=== PATIENT | female | born 1995 | race Caucasian/White ===

== ENCOUNTER 2021-07-02 22:00 | Outpatient (CLI) | payer MEDICAID, SELFPAY ==
[2021-07-02] VITALS (8 sets, daily range): BP systolic 134–159; BP diastolic 83–93; PULSE 88–106; RESP 16; TEMP 36.8; BMI 27.2
[2021-07-02 23:21] LABS: Urine Creatinine 55 mg/dL (28-217); Urine Protein Random 8 mg/dL
[2021-07-02 23:22] LABS: UPRO/UCREAT Ratio 0.15 mg/mg CR
== END 2021-07-02 23:44 | disposition home or self-care (01) ==
LOC: OPOB 22:08 → OBGYN 22:09
PROVIDERS: PCP Family Medicine; Visit Provider Family Medicine
DX: O26.899 Other specified pregnancy related conditions, unspecified trimester (principal); Z3A.00 Weeks of gestation of pregnancy not specified; R10.9 Unspecified abdominal pain
CPT/HCPCS: 36415; 59025; 82570; 84156; 99211

== ENCOUNTER 2021-07-04 13:24 | Inpatient (IN) | payer MEDICAID, SELFPAY ==
[2021-07-04] VITALS (37 sets, daily range): BP systolic 125–152; BP diastolic 60–91; PULSE 70–113; RESP 16–18; TEMP 36.9–37; O2SAT 97–98; BMI 27.2
[2021-07-04 14:41] LABS: Urine Color Yellow (Yellow)
[2021-07-04 14:42] LABS: Add Urine Microscopic? YES; Bilirubin Urine Neg (Negative); Blood Urine Neg (Negative); Glucose Urine UA Norm (Normal); Ketones Urine 2+ (Negative); Leukocyte Esterase Urine Negative (Negative); Nitrate Urine Negative (Negative); Protein Urine Neg (Negative); Urine Appearance SL Hazy (CLEAR); Urobilinogen Urine 4 mg/dL (Negative); pH Urine 7 (5-7)
[2021-07-04 14:44] LABS: Add Urine Culture? No; Alanine Aminotransferase 8 U/L (0-33); Albumin Level 3.4 g/dL (3.5-5.2); Alkaline Phosphatase 255 IU/L (35-105); Anion Gap 18.6 (5-19); Aspartate Amino Transferase 15 U/L (0-32); Bacteria Urine 1+ /hpf; Blood Urea Nitrogen 4 mg/dL (6-20); Calcium 8.5 mg/dL (8.5-10.5); Carbon Dioxide 20 mmol/L (22-29); Chloride 102 mmol/L (98-107); Globulin 2.6 g/dL (1.3-4.6); Glomerular Filtration Rate 432.8 mL/min (90-130); Glucose 76 mg/dL (65-115); Osmolality Calculated 280 mOsm/kg (285-295); Potassium 3.6 mmol/L (3.5-5.1); Sodium 137 mmol/L (136-145); Squamous Epithelial Cell Urine 15-25 /hpf (0-5); Total Bilirubin 0.3 mg/dL (0.15-1.2); WBC Urine 0-4 /hpf (0-5)
[2021-07-04] MEDS: ampicillin 2,000 MG in sodium chloride 0.9% (plus) 50 ML 100 MG IV (14:56)
[2021-07-04] MEDS: dextrose 5%-lactated ringers 1,000 ML 125 ML IV (14:57)
[2021-07-04] MEDS: miSOPROStol 100 mcg tablet 25 MCG VAGINAL (14:57)
--- NOTE | 2021-07-04 15:13 | ANES.PREANE2 ---
Pre-Anesthetic Assessment Pre-Anesthetic Assessment: Height/Weight: Height 1.68 m Weight 76.657 kg Pulse BP 84 135/73 07/04/21 15:08 07/04/21 15:08 Preop Diagnosis: IUP Proposed Procedure: labor epidural Was Beta Tawnya taken within 24 hours: N/A Was Clonidine taken within 24 hours: N/A Social: Social History: No alcohol and No tobacco Exam: Pre-Anes Outpt Exam: alert and oriented x 3 Airway: Submandibular: WNL Cervical ROM: WNL MP: 2 Dentition: Full History/ROS: No significant history except as noted Pulmonary: Pulmonary: None reported CV/HEM: CV/HEM: HTN (gestational) and Murmur (stable, doesnt see belt loop maker) : : None reported Hepatic: Hepatic: Hepatitis (C) GI: GI: GERD Metabolic: Metabolic: None reported Musc/skel: Musc/skel: None reported Neuropsych: Neuropsych: None reported Anesthetic Plan: ASA status: 2 Anesthesia: Anesthesia Evaluation and Regional (specify below) (epidural) Risk of > 500 ml blood loss (7ml/kg in children): No Meds/Allergies Current Medications: Current Medications Generic Name Dose Route Start Last Admin Trade Name Freq PRN Reason Stop Dose Admin Dextrose/Lactated Ringer's 1,000 mls @ 125 m ls/hr 07/04/21 14:00 07/04/21 14:57 Dextrose 5%-Lact ated Ringers IV 125 mls/hr .Q8H DELMAR Administration Misoprostol 25 mcg 07/04/21 14:30 07/04/21 14:57 Misoprostol 100 Mcg Tablet VAGINAL 07/04/21 22:31 25 mcg Q4H DELMAR Administration PFS Anesthesia Female Reproductive History: : 3 Data Anesthesia CBC & Chem 7: 07/04/21 12:30 Other Labs: Laboratory Results - last 48 hr 07/04/21 07/04/21 12:30 12:30 Sodium 137 Potassium 3.6 Chloride 102 Carbon Dioxide 20 L Anion Gap 18.6 BUN 4 L Creatinine 0.2 L GFR Calculation 432.8 H Glucose 76 Calculated Osmolality 280 L Uric Acid 3.0 Calcium 8.5 Total Bilirubin 0.3 AST 15 ALT 8 Alkaline Phosphatase 255 H Total Protein 6.0 L Albumin 3.4 L Globulin 2.6 Urine Color Yellow Urine Appearance Sl hazy Urine pH 7 Ur Specific [place] 1.010 Urine Protein Neg Urine Glucose (UA) Norm Urine Ketones 2+ H Urine Blood Neg Urine Nitrate Negative Urine Bilirubin Neg Urine Urobilinogen 4 H Ur Leukocyte Esterase Negative Urine RBC None Urine WBC 0-4 H Ur Squamous Epith Cells 15-25 H Amorphous Sediment Not Reportable Urine Bacteria 1+ H Cardiac Studies: No Data to Display
[2021-07-04 15:43] LABS: Basophils % 0.2 %; Eosinophils % 0.2 %; Hematocrit 39.1 % (37.0-47.0); Hemoglobin 13.1 g/dL (11.5-15.3); Lymphocytes % 14.1 %; Mean Corpuscular HGB Conc 33.5 g/dL (30.0-36.0); Mean Corpuscular Hemoglobin 29.9 pg (28.0-34.0); Mean Corpuscular Volume 89.3 fl (81-99); Mean Platelet Volume 11.6 fL (7.4-10.4); Monocytes % 6.9 %; Neutrophils # 11.21 10^3/uL (1.8-7.7); Neutrophils % 77.6 %; Nucleated Red Blood Cells % 0 %; Platelet Count 282 10^3/cmm (130-400); Red Blood Count 4.38 10^6/uL (4.1-5.3); Red Cell Distribution Width 11.8 % (12.1-15.1); White Blood Count 14.4 10^3/uL (4.0-10.0)
[2021-07-04 16:21] LABS: Urine Creatinine 157 mg/dL (28-217)
[2021-07-04 16:28] LABS: UPRO/UCREAT Ratio 0.19 mg/mg CR; Urine Protein Random 30 mg/dL
[2021-07-04 16:36] LABS: Adenovirus Not Detected (NOT DETECT); Chlamydia Pneumoniae Not Detected (NOT DETECT); Coronavirus 229E,HKU1,NL63,OC4 Not Detected (NOT DETECT); Human Metapneumovirus Not Detected (NOT DETECT); Human Rhinovirus/Enterovirus Not Detected (NOT DETECT); Influenza A Not Detected (NOT DETECT); Influenza A H1 Not Detected (NOT DETECT); Influenza A H1-2009 Not Detected (NOT DETECT); Influenza A H3 Not Detected (NOT DETECT); Influenza B Not Detected (NOT DETECT); Mycoplasma Pneumoniae Not Detected (NOT DETECT); Parainfluenza Virus Type 1 Not Detected (NOT DETECT); Parainfluenza Virus Type 2 Not Detected (NOT DETECT); Parainfluenza Virus Type 3 Not Detected (NOT DETECT); Parainfluenza Virus Type 4 Not Detected (NOT DETECT); Respiratory Syncytial Virus A Not Detected (NOT DETECT); Respiratory Syncytial Virus B Not Detected (NOT DETECT); SARS-COV-2 Not Detected (NOT DETECT)
[2021-07-04] MEDS: ampicillin 1,000 MG in sodium chloride 0.9% (plus) 50 ML 100 MG IV (19:13)
[2021-07-04] MEDS: fentaNYL 50 mcg/mL INJ 2mL IVP (19:20)
[2021-07-04] MEDS: lactated ringers 1,000 ML 999 ML IV (19:30)
[2021-07-04] MEDS: oxytocin 30 UNIT/500 ML BAG 600 UNIT IV (19:56)
--- NOTE | 2021-07-04 20:20 | P.HPUD_ITS ---
Labor & Delivery H&P Update Date of Procedure: July 04, 2021 Date H&P Performed: 07/03/21 H&P update information: I have reviewed H&P completed within last 30 days, I have examined patient prior to procedure and Changes to prior documentation as noted here Admission Diagnosis: 3 para 2-0-0-2 at 37-week and 4 days estimated gestational age presenting with consistent, painful uterine contractions Preop diagnosis: IUP Planned procedure: Spontaneous vaginal delivery Other information: The patient is a pleasant 25-year-old who presented to the hospital today complaining of consistent painful contractions and an elevated blood pressure. The patient was assessed and found to have painful contractions every 5 to 7 minutes as well as a cervical exam that was 2 and 60%. The patient has been having high blood pressures intermittently over the last week. She was noted to have high blood pressures at home with systolics into the 150s prior to coming to the hospital. She also had blood pressures that were documented elevated last week both in my office and in the OB department. The patient lives about 45 minutes away from the hospital and has a history of rapid labors. Given the patient's gestational hypertension, her GBS status and tendency towards rapid labors, and her active painful contractions, I elected to proceed with augmentation of her labor. She was placed on Cytotec 25 mcg. An amniotomy was performed. A preeclamptic panel was performed which demonstrated a protein creatinine ratio of 0.19. Otherwise it was relatively unremarkable with exception of a white blood count of 14.4. Her labs were also relatively unremarkable. She had initial hepatitis C test which was found to be positive. A confirmatory test found that to be a false positive. Her blood type is O positive. She was GBS positive. She is rubella immune. The remainder of her panel labs are within normal limits. The patient also desired a tubal ligation. We discussed the risks of the procedure including the risks of bleeding, infection, and damage to intra- abdominal organs earlier in her . We also discussed the 1 and 200 chance of becoming again despite a successful tubal ligation. She acknowledges all these risks, and want to getting on some here in the hospital, and would like to proceed with a tubal ligation when she has had her baby. The consent form was signed over a month ago. Related Problem List Diagnoses (1) 37 weeks gestation of : (2) Gestational hypertension: (3) H/O rapid labor: (4) Uterine contractions: (5) Group beta Strep positive: (6) Sterilization consult:
--- NOTE | 2021-07-04 20:34 | PM.DELIVERY ---
Delivery Note: Date of delivery: July 04, 2021 Pre-delivery diagnoses: 1. 25-year-old 3 para 2-0-0-2 at 37 weeks and 4 days estimated gestational age 2. History of rapid labors 3. Gestational hypertension 4. Consistent painful contractions 5. GBS positive Post-delivery diagnoses: Status post spontaneous vaginal delivery Op report anesthesia: None Estimated blood loss (mL): 50 Pre-Delivery Course: Please see history and physical update for details. The patient arrived to the hospital with consistent contractions. Her labor was augmented with Cytotec and an amniotomy. She then quickly progressed to complete without difficulty. The patient had over 4 hours of group B strep protocol. Delivery: DELIVERY: The patient progressed to complete without difficulty. While I was coming from home, Dr. Whittington stepped in for me. The baby delivered seconds before I arrived. She delivered a Female With a weight of 6 pounds 12 ounces with Apgars of 9, 9. The baby was delivered from the MADHURI position and placed on the mother's abdomen. The cord was clamped and cut about 90 seconds after delivery. There was no nuchal cord. There was no meconium. The placenta and 3 vessel cord were delivered intact shortly thereafter. The perineum and vaginal vault were carefully examined. No lacerations were noted. Both the mother and the baby were in stable condition. Post-Delivery Status: Good A&P Assessment and plan (1) 37 weeks gestation of : Status: Acute (2) Gestational hypertension: Status: Acute (3) H/O rapid labor: Status: Acute (4) Uterine contractions: Status: Acute (5) Group beta Strep positive: Status: Acute Coding Level of Care Code Acute Supervisor Electronic Testing for Chg Fwd Diagnoses 37 weeks gestation of Z3A.37 Gestational hypertension O13.9 H/O rapid labor Z87.59 Uterine contractions O47.9 Group beta Strep positive B95.1
[2021-07-04] MEDS: ibuprofen 800 mg tablet PO (21:47)
[2021-07-04] MEDS: benzocaine-menthol 78 gm Canister 1 SPRAY TOPICAL (21:47)
[2021-07-04] MEDS: lanolin oint 7 gm 1 APPLIC TOPICAL (21:48)
[2021-07-04] MEDS: HYDROcodone-acetaminophen 5-325 mg Tablet PO (23:14)
[2021-07-05] VITALS (25 sets, daily range): BP systolic 96–146; BP diastolic 43–82; PULSE 54–101; RESP 14–21; TEMP 36.1–37.1; O2SAT 95–100
[2021-07-05] MEDS: HYDROcodone-acetaminophen 5-325 mg Tablet PO ×2 (05:59→14:34)
[2021-07-05] MEDS: docusate sodium 100 mg Capsule PO ×2 (07:59→18:15)
[2021-07-05] MEDS: prenatal vitamin Capsule 1 CAP PO (07:59)
[2021-07-05] MEDS: ibuprofen 800 mg tablet PO ×2 (07:59→14:35)
--- NOTE | 2021-07-05 10:01 | P.ANESASSM_ITS ---
Pre-Anesthetic Assessment Pre-Anesthetic Assessment: Height/Weight: Height 1.68 m Weight 76.657 kg Temp Pulse Resp BP Pulse Ox 97.2 F L 64 15 146/81 96 07/05/21 09:29 07/05/21 09:29 07/05/21 09:29 07/05/21 09:29 07/05/21 09:29 Preop Diagnosis: female desiring sterilization Proposed Procedure: Operation Date: 07/05/21 09:30 Proposed Procedures p Bilateral Tubal Ligation(Not Applicable) - Jone aJne MD Was Beta Tawnya taken within 24 hours: N/A Was Clonidine taken within 24 hours: N/A Last intake: Intake Last Liquid Date 07/05/21 Last Liquid Time 00:00 Last Solid Date 07/05/21 Last Solid Time 00:00 Social: Social History: Tobacco and No alcohol Exam: Pre-Anes Outpt Exam: alert, oriented x 3, clear to auscultation bilaterally and regular rate & rhythm Airway: Submandibular: WNL Cervical ROM: WNL MP: 3 Dentition: Full History/ROS: No significant history except as noted Pulmonary: Pulmonary: None reported CV/HEM: CV/HEM: HTN (Gestational htn) : : None reported Hepatic: Hepatic: None reported GI: GI: None reported Metabolic: Metabolic: None reported Musc/skel: Musc/skel: None reported Neuropsych: Neuropsych: None reported Anesthetic Plan: ASA status: 2 Anesthesia: Anesthesia Evaluation and Regional (specify below) Other: We discussed risk and benefits of spinal vs general anesthetic including catastrophic nerve injury, PDPH, infection, hypotension associated with spinal. Patient elects to proceed with spinal today. Risk of > 500 ml blood loss (7ml/kg in children): No Meds/Allergies Current Medications: Current Medications Generic Name Dose Route Start Last Admin Trade Name Freq PRN Reason Stop Dose Admin Hydrocodone Bitart /Acetaminophen 1 - 2 tab 07/04/21 21:42 07/05/21 05:59 Hydrocodone-Acet aminophen 5-325 Mg Tablet PO 2 tab Q6H PRN Administration MODERATE TO SEVER E PAIN Benzocaine 1 spray 07/04/21 21:42 07/04/21 21:47 Benzocaine-Menth ol 78 Gm Canister TOPICAL 1 spray PRN PRN Administration PAIN Docusate Sodium 100 mg 07/05/21 09:00 07/05/21 07:59 Docusate Sodium 100 Mg Capsule PO 100 mg BID DELMAR Administration Ibuprofen 800 mg 07/04/21 21:42 07/05/21 07:59 Ibuprofen 800 Mg Tablet PO 800 mg TID DELMAR Administration Lanolin 1 applic 07/04/21 21:42 07/04/21 21:48 Lanolin Oint 7 G m TOPICAL 1 applic PRN PRN Administration DRYNESS Multivit/ Folic Acid/Iron 1 cap 07/05/21 09:00 07/05/21 07:59 Vitamin Capsule PO 1 cap DAILY DELMAR Administration PFSH Anesthesia Female Reproductive History: : 3 Data Anesthesia CBC & Chem 7: 07/04/21 12:30 07/04/21 12:30 Other Labs: Laboratory Results - last 48 hr 07/04/21 07/04/21 07/04/21 12:30 12:30 12:30 WBC RBC Hgb Hct MCV MCH MCHC RDW Plt Count MPV Neut % (Auto) Lymph % (Auto) [place] % (Auto) Eos % (Auto) Baso % (Auto) Neut # (Auto) Lymph # (Auto) [place] # (Auto) Eos # (Auto) Baso # (Auto) Nucleated RBC % (auto) Nucleated RBCs # Sodium 137 Potassium 3.6 Chloride 102 Carbon Dioxide 20 L Anion Gap 18.6 BUN 4 L Creatinine 0.2 L GFR Calculation 432.8 H Glucose 76 Calculated Osmolality 280 L Uric Acid 3.0 Calcium 8.5 Total Bilirubin 0.3 AST 15 ALT 8 Alkaline Phosphatase 255 H Total Protein 6.0 L Albumin 3.4 L Globulin 2.6 Urine Color Yellow Urine Appearance Sl hazy Urine pH 7 Ur Specific [place] 1.010 Urine Protein Neg Urine Glucose (UA) Norm Urine Ketones 2+ H Urine Blood Neg Urine Nitrate Negative Urine Bilirubin Neg Urine Urobilinogen 4 H Ur Leukocyte Esterase Negative Urine RBC None Urine WBC 0-4 H Ur Squamous Epith Cells 15-25 H Amorphous Sediment Not Reportable Urine Bacteria 1+ H U Random Total Protein Urine Creatinine Protein/Creatinin Ratio Coronavirus 229E (PCR) Not detected SARS-CoV-2 (PCR) Not detected 07/04/21 07/04/21 12:30 12:30 WBC 14.4 H RBC 4.38 Hgb 13.1 Hct 39.1 MCV 89.3 MCH 29.9 MCHC 33.5 RDW 11.8 L Plt Count 282 MPV 11.6 H Neut % (Auto) 77.6 Lymph % (Auto) 14.1 [place] % (Auto) 6.9 Eos % (Auto) 0.2 Baso % (Auto) 0.2 Neut # (Auto) 11.21 H Lymph # (Auto) 2.0 [place] # (Auto) 1.0 H Eos # (Auto) 0.0 Baso # (Auto) 0.0 Nucleated RBC % (auto) 0 Nucleated RBCs # 0.0 Sodium Potassium Chloride Carbon Dioxide Anion Gap BUN Creatinine GFR Calculation Glucose Calculated Osmolality Uric Acid Calcium Total Bilirubin AST ALT Alkaline Phosphatase Total Protein Albumin Globulin Urine Color Urine Appearance Urine pH Ur Specific [place] Urine Protein Urine Glucose (UA) Urine Ketones Urine Blood Urine Nitrate Urine Bilirubin Urine Urobilinogen Ur Leukocyte Esterase Urine RBC Urine WBC Ur Squamous Epith Cells Amorphous Sediment Urine Bacteria U Random Total Protein 30 Urine Creatinine 157 Protein/Creatinin Ratio 0.19 Coronavirus 229E (PCR) SARS-CoV-2 (PCR) Cardiac Studies: No Data to Display
--- NOTE | 2021-07-05 11:07 | P.OP_ITS ---
Operative Report Date of procedure: July 05, 2021 Pre-op Diagnosis: female desiring sterilization Post-op diagnosis: same Procedure Done: minilaparotomy bilateral tubal ligation using a modified Charlie technique Specimens removed/disposition: Bilateral fallopian tube segments with the right segment being tagged. Pathology: other (Bilateral fallopian tube segments with the right segment being tagged) Surgeon: Jone Jane Anesthesia: General Estimated blood loss (mL): 5 Complications: None Condition: stable Brief History: The patient is a 25 female desiring sterilization. Procedure: The patient was brought back to the operating room where anesthesia was found to be adequate. 10 mL of 0.5% bupivacaine was then used to pre- anesthetize the area just inferior to the umbilicus. A #15 blade was then used to make a 3 cm transverse incision just inferior to the umbilicus. I then dissected down to the underlying subcutaneous tissue until arriving at the fascia. The fascia was then nicked with the scalpel. The fascial incision was extended manually. I identified the fundus of the uterus and followed it to the left fallopian tube. The fallopian tube was then followed to the fimbria. The tube was then ligated, cut, and cauterized in a modified Charlie fashion using 0 chromic. The right fallopian tube was then identified and followed through to the fimbria. It was ligated, cut, and cauterized in similar fashion. The right fallopian tube was tagged. Both fallopian tubes had excellent hemostasis. The fascia was reapproximated using 0 Vicryl in running stitch. The subcutaneous tissue was carefully examined and no further bleeding was noted. The skin was then reapproximated using 4-0 Vicryl in a running subcuticular stitch. A sterile dressing was placed. All counts were correct x2. The patient was moved to the recovery room in stable condition. Associated Problem List Diagnoses (1) Sterilization consult:
--- NOTE | 2021-07-05 11:20 | P.DS_ITS ---
Discharge Providers POWER PLANT SUPERINTENDENT Date of Admission: 07/04/21 13:24 Date of Discharge: 07/07/21 Attending Provider at Admission: Jone Jane MD Attending Provider at Discharge: Jone Jane MD Primary Care Provider: Jone Jane MD Diagnoses at Discharge Discharge Diagnosis (1) Sterilization consult: Status: Resolved Reason for Visit Reason for Visit: contractions Hospital Course Hospital Course The patient presented to the hospital having consistent contractions. She also had known gestational hypertension. A preeclamptic panel was done which was negative. Her labor was augmented. She progressed to complete and had an unremarkable precipitous delivery of a healthy appearing female infant. Her course was unremarkable. A tubal ligation was performed. She recovered well postoperatively. She was discharged home. Information Peripartum Data: Delivery Method: Vaginal Physical Exam Narrative: EXAM NARRATIVE: The patient is alert. She appears comfortable. Her heart has a regular rate and rhythm with no murmurs appreciated. Lungs are clear to auscultation bilaterally. Her fundus is firm and below the umbilicus. The bandage over her incision is clean dry and intact Discharge Data Data Completed and Pending: Pending at discharge Category Date Time Status Hemagram Timed Lab 07/05/21 08:10 Uncollected Pathology: Surgic al [PTH] Routine Pth 07/05/21 11:08 Ordered Labs from last 24 hours 07/04/21 07/04/21 07/04/21 12:30 12:30 12:30 WBC 14.4 H RBC 4.38 Hgb 13.1 Hct 39.1 MCV 89.3 MCH 29.9 MCHC 33.5 RDW 11.8 L Plt Count 282 MPV 11.6 H Neut % (Auto) 77.6 Lymph % (Auto) 14.1 [place] % (Auto) 6.9 Eos % (Auto) 0.2 Baso % (Auto) 0.2 Neut # (Auto) 11.21 H Lymph # (Auto) 2.0 [place] # (Auto) 1.0 H Eos # (Auto) 0.0 Baso # (Auto) 0.0 Nucleated RBC % (a uto) 0 Nucleated RBCs # 0.0 Sodium Potassium Chloride Carbon Dioxide Anion Gap BUN Creatinine GFR Calculation Glucose Calculated Osmolal ity Uric Acid Calcium Total Bilirubin AST ALT Alkaline Phosphata se Total Protein Albumin Globulin Urine Color Urine Appearance Urine pH Ur Specific [place] Urine Protein Urine Glucose (UA) Urine Ketones Urine Blood Urine Nitrate Urine Bilirubin Urine Urobilinogen Ur Leukocyte [place] ase Urine RBC Urine WBC Ur Squamous Epith Cells Amorphous Sediment Urine Bacteria U Random Total Pro tein 30 Urine Creatinine 157 Protein/Creatinin Ratio 0.19 Coronavirus 229E ( PCR) Not detected SARS-CoV-2 (PCR) Not detected 07/04/21 07/04/21 12:30 12:30 WBC RBC Hgb Hct MCV MCH MCHC RDW Plt Count MPV Neut % (Auto) Lymph % (Auto) [place] % (Auto) Eos % (Auto) Baso % (Auto) Neut # (Auto) Lymph # (Auto) [place] # (Auto) Eos # (Auto) Baso # (Auto) Nucleated RBC % (a uto) Nucleated RBCs # Sodium 137 Potassium 3.6 Chloride 102 Carbon Dioxide 20 L Anion Gap 18.6 BUN 4 L Creatinine 0.2 L GFR Calculation 432.8 H Glucose 76 Calculated Osmolal ity 280 L Uric Acid 3.0 Calcium 8.5 Total Bilirubin 0.3 AST 15 ALT 8 Alkaline Phosphata se 255 H Total Protein 6.0 L Albumin 3.4 L Globulin 2.6 Urine Color Yellow Urine Appearance Sl hazy Urine pH 7 Ur Specific [place] 1.010 Urine Protein Neg Urine Glucose (UA) Norm Urine Ketones 2+ H Urine Blood Neg Urine Nitrate Negative Urine Bilirubin Neg Urine Urobilinogen 4 H Ur Leukocyte [place] ase Negative Urine RBC None Urine WBC 0-4 H Ur Squamous Epith Cells 15-25 H Amorphous Sediment Not Reportable Urine Bacteria 1+ H U Random Total Pro tein Urine Creatinine Protein/Creatinin Ratio Coronavirus 229E ( PCR) SARS-CoV-2 (PCR) Vitals: Last Vital Signs Temp 97.2 F L 07/05/21 09:29 Pulse 64 07/05/21 09:29 Resp 15 07/05/21 09:29 BP 146/81 07/05/21 09:29 Pulse Ox 96 07/05/21 09:29 Discharge Plan Discharge Patient Disposition: Home Condition: Stable Prescriptions: New ibuprofen 800 mg Tablet 800 mg PO TID Qty: 45 RF: 0 hydrocodone-acetaminophen 5-325 mg Tablet 1 - 2 tab PO Q6H PRN (Reason: Moderate To Severe Pain) Qty: 10 RF: 0 Continued prenat.vits,billie,[id number] Tablet 1 tab PO DAILY RF: 0 Discharge Orders: Discharge Order (Routine); Ordered 07/05/21 Ordered By: Jone Jane Referrals: Jone Jane MD [Primary Care Provider] - 4-7 days (Someone from the OB department will call you tomrrow with your post- and appointments. ) Discharge Diet: Usual diet Discharge Activity: Limit activity as instructed Patient Instructions: Depression (DC), Expression, Collection and Storage of Breast Milk (DC), Bleeding (DC), Preeclampsia and Eclampsia After Delivery (GEN), OB Discharge Report, OB Food/Drug Interaction Guide, Opioid Safety, OB Home Care, OB Vaginal Deliveries Discharge Attestations POWER PLANT SUPERINTENDENT Time Spent in Discharge Care*: less than 30 min Coding Level of Care Code Acute Global Supply Chain Vice President for Chg Fwd Diagnoses Sterilization consult Z30.09
--- NOTE | 2021-07-05 11:29 | SUR.PHASEI ---
patient arrives into pacu with simple mask sats at 96% , wakes but very sleepy. dressing in place, dry and intact. abd soft. patient instructed to wiggle toes, unable to at this point. 1132: patient awake and asking questions, on room air. sats at 95%.
--- NOTE | 2021-07-05 11:43 | SUR.PHASEI ---
patient able to feel sensation slightly above belly button.
--- NOTE | 2021-07-05 11:48 | SUR.PHASEI ---
patient taking ice chips
--- NOTE | 2021-07-05 12:11 | PC.NURSE ---
1205 Pt. rec'd via bed from tubal. Pt awake and oriented. Pt transferred to bed with assist x 3. Pt oriented to room. Pt.'s at bedside holding baby.
--- NOTE | 2021-07-05 12:18 | SUR.PHASEI ---
patient transported back to OB, report called to Tavia RN. patient transferred to floor bed from [facility] via slide board, tolerated well. patient still unable to feel sensation below belly button. family in room on arrival. pt awake and alert. dressing to site has very small amount of drainage on it, otherwise in place and abd soft.
--- NOTE | 2021-07-05 13:06 | PC.NURSE ---
PT OFF FLOOR TO OR FOR TUBAL.
[2021-07-05 13:23] LABS: Hematocrit 35.8 % (37.0-47.0); Hemoglobin 11.6 g/dL (11.5-15.3); Mean Corpuscular HGB Conc 32.4 g/dL (30.0-36.0); Mean Corpuscular Hemoglobin 29.3 pg (28.0-34.0); Mean Corpuscular Volume 90.4 fl (81-99); Mean Platelet Volume 11.3 fL (7.4-10.4); Platelet Count 258 10^3/cmm (130-400); Red Blood Count 3.96 10^6/uL (4.1-5.3); Red Cell Distribution Width 11.8 % (12.1-15.1); White Blood Count 14.2 10^3/uL (4.0-10.0)
--- NOTE | 2021-07-05 13:26 | ANE.PACU2 ---
Inpatient post-anesthesia follow up: Airway intact: Yes Vital signs: Temperature 97.5 F Pulse Rate 69 Respiratory Rate 16 Blood Pressure 124/63 Pulse Oximetry 100 Oxygen Delivery Me thod Room Air Oxygen Flow Rate 6 Fraction of Inspir ed Oxygen Hydration adequate: Yes Nausea and vomiting: No Pain level: 1 Mental status: Baseline
--- NOTE | 2021-07-06 10:18 | PC.NURSE ---
THIS [employer] HEATER TENDER CALLED [facility] AND MADE APPOINTMENTS FOR THEM ALL ON Thursday AT 1000.
== END 2021-07-05 20:49 | disposition home or self-care (01) | DRG 798 ==
LOC: OPOB 13:24 → OBGYN 13:24
PROVIDERS: Admitting Provider Family Medicine; PCP Family Medicine; Visit Provider Family Medicine
PROC: 0U570ZZ Destruction of Bilateral Fallopian Tubes, Open Approach (ICD-10-PCS; CPT 58605; principal; 2021-07-05 09:30)
DX: O13.4 Gestational [pregnancy-induced] hypertension without significant proteinuria, complicating childbirth (principal); Z37.0 Single live birth; O99.824 Streptococcus B carrier state complicating childbirth; Z3A.37 37 weeks gestation of pregnancy
CPT/HCPCS: 12345; 36415; 59025; 59409; 80053; 81001; 82570; 84156; 84550; 85025; 85027; 87635; 88302; 99211; J0290; J0330; J1100; J2250; J2405; J2704; J3010; J3490

== ENCOUNTER 2022-03-11 09:44 | Emergency (ER) | payer MEDICAID, SELFPAY ==
[2022-03-11 09:51] VITALS: BP 143/90; PULSE 72; RESP 17; TEMP 37.1; O2SAT 98; BMI 23.3
--- NOTE | 2022-03-11 10:12 | XRR_ITS ---
PROCEDURE INFORMATION: Exam: XR Right Ribs with PA Chest Exam date and time: 03/11/2022 10:28 AM Age: 26 years old Clinical indication: Pain and injury or trauma; Other: Pain-person fell ontop of; Rib area, left side; Blunt trauma; Chest wall pain; Right; Additional info: Right side rib pain-person fell ontop of PT TECHNIQUE: Imaging protocol: Radiologic exam of the Right ribs with PA chest. Views: 3 views COMPARISON: CR XR shoulder RT min 2V* [id number] 03/11/2022 10:21 AM FINDINGS: Lungs: The lung parenchyma is clear. Pleural spaces: No pneumothorax. No pleural effusion. Heart/Mediastinum: The cardiomediastinal silhouette is within normal limits. Bones/joints: Unremarkable. No displaced rib fractures identified. XR/XR ribs RT mn 3V w CXR1V [id number] IMPRESSION: No displaced rib fractures identified.
--- NOTE | 2022-03-11 10:12 | XR_ITS ---
WS: [id number] XR shoulder RT min 2V* [id number] REASON FOR EXAM: shoulder pain-person fell onto of pt FINDINGS: No fracture. Normal acromioclavicular joint alignment and normal coracoclavicular interval. Normal glenohumeral alignment and interval. XR/XR shoulder RT min 2V* [id number] IMPRESSION: No acute abnormality.
--- NOTE | 2022-03-11 10:21 | W.ED.EXTPRO ---
HPI - Extremity Problem General: Chief complaint: Extremity Injury, Upper Stated complaint: chest, right shoulder pain Time Seen by Provider: 03/11/22 09:59 History of Present Illness: Patient is a 26-year-old female comes to the ED with right shoulder and right rib and chest wall pain. Injury occurred approximately 4 days ago. Patient says she was trying to pop friends back and was behind her lifting up. She states she then fell backwards and her friend landed on top of her. Since injury she has tenderness to her right chest wall and it hurts when she takes a deep breath. She also endorses having pain on the posterior aspect of right shoulder. Shoulder pain worsens with range of motion of right arm. She rates her pain currently an 8 out of 10. She has not taken any Tylenol or ibuprofen before coming to the ED. Denies any head trauma or loss of consciousness. Associated symptoms: Deny chest pain, fever(s) or rash Review of Systems Const: Denies: fever(s), chills or fatigue Eyes: Denies: change in vision or eye discomfort ENMT: Denies: throat pain, odynophagia, nasal discharge or nasal congestion Card: Denies: chest pain, palpitations, edema, swelling of feet/ankles, dyspnea on exertion or orthopnea Resp: Reports: pain on inspiration (Right ribs and chest wall pain with inspiration); Denies: dyspnea, productive cough or non-productive cough GI: Denies: abdominal pain, nausea, vomiting, diarrhea, constipation or hematochezia : Denies: flank pain, dysuria or hematuria Musc: Reports: extremity pain (Right shoulder pain) and other (Right rib/chest wall pain); Denies: neck pain, back pain or extremity swelling Skin/Breast: Denies: rash or new lesions Neuro: Denies: headache(s), numbness in extremities or weakness in extremities PFS ED PFSH: Medical History (Updated 03/12/22 @ 23:00 by MARLENY Tracy) No pertinent family history Surgical History (Updated 03/12/22 @ 23:00 by MARLENY Tracy) No pertinent past surgical history Physical Exam Const: COMMON NORMALS: patient oriented x3, healthy appearing and alert GENERAL APPEARANCE: cooperative and comfortable HENMT: COMMON NORMALS: normocephalic HEAD & SCALP: normocephalic MOUTH: Normal oral and palatal mucosa present THROAT: posterior oropharynx normal and uvula midline Neck/C-Spine: COMMON NORMALS: supple GENERAL: Yes normal visual inspection Chest: CHEST: Yes tenderness rib right mid-clavicular line involving the 4th rib, involving the 5th rib and involving the 6th rib and other Resp: COMMON NORMALS: normal respiratory effort, No retractions, No use of accessory muscles and clear to auscultation bilaterally AUSCULTATION: clear to auscultation bilaterally Cardio: COMMON NORMALS: regular rate, regular rhythm, S1 normal heart sound present, S2 normal heart sound present, No gallops present (Cardio), No clicks present (Cardio), No murmurs present (Cardio) and Peripheral pulses 2+ throughout RATE: regular rate RHYTHM: regular rhythm HEART SOUNDS: S1 normal heart sound present and S2 normal heart sound present PERIPHERAL PULSES: Peripheral pulses 2+ throughout GI: COMMON NORMALS: Normal to inspection, nondistended, normoactive bowel sounds present, Soft to palpation, non-tender and no masses PALPATION: Yes Soft to palpation : COMMON NORMALS: Yes no CVA tenderness BLADDER/KIDNEY EXAM: Yes no CVA tenderness Back/Pelvis: COMMON NORMALS: no CVA tenderness Extremity: NARRATIVE EXTREMITY EXAM: Right shoulder?muscular tenderness over posterior aspect of shoulder and scapular region. Full range of motion. Neurovascular intact distally. GENERAL: Yes normal exam except as noted Neuro: COMMON NORMALS: patient oriented x3 SENSORIUM/ORIENTATION: Yes alert GAIT: Yes Normal gait present Skin: GENERAL SKIN EXAM: dry skin Course Vital Signs: Vital signs: Vital Signs Temperature 98.7 F 03/11/22 11:02 Pulse Rate 72 03/11/22 11:02 Respiratory Rate 17 03/11/22 11:02 Blood Pressure 143/90 03/11/22 11:02 Pulse Oximetry 98 03/11/22 11:02 MDM - Extremity (Nontraumatic) Medical Decision Making Patient is a 26-year-old female comes to the ED with right shoulder and right rib and chest wall pain. Injury occurred approximately 4 days ago. Patient says she was trying to pop friends back and was behind her lifting up. She states she then fell backwards and her friend landed on top of her. Vitals are stable. Patient appears nontoxic in no acute distress or pain. She has muscular tenderness over posterior aspect of right shoulder and scapular region but full range of motion and neurovascular intact. Right rib tenderness. Rest of exam is benign. Rib x-ray and right shoulder x-ray showed no acute fractures or findings. Patient was diagnosed with chest wall contusion and muscle strain of right shoulder and discharged home with a prescription for ibuprofen 800s. Follow-up PCP in the next week for reevaluation. Return ED precautions given. Patient understood and agreed with plan. Lab Data Radiology Impressions Ribs X-Ray 03/11/22 10:12 IMPRESSION: No displaced rib fractures identified. Shoulder X-Ray 03/11/22 10:12 IMPRESSION: No acute abnormality. Discharge Plan Discharge Patient Disposition: Home Clinical Impression: Muscle strain of right shoulder Qualifiers: Encounter type: initial encounter Qualified Code(s): S46.911A - Strain of unspecified muscle, fascia and tendon at shoulder and upper arm level, right arm, initial encounter Chest wall contusion Qualifiers: Encounter type: initial encounter Laterality: right Qualified Code(s): S20.211A - Contusion of right front wall of thorax, initial encounter Condition: Stable Prescriptions: New ibuprofen 800 mg tablet 800 mg PO Q8H PRN (Reason: pain) Qty: 20 0RF No Action prenat.vits,billie,[id number]-[id number]-xymnp Tablet 1 tab PO DAILY ibuprofen 800 mg Tablet 800 mg PO TID Qty: 45 0RF hydrocodone-acetaminophen 5-325 mg Tablet 1 - 2 tab PO Q6H PRN (Reason: Moderate To Severe Pain) Qty: 10 0RF Discharge Orders: Discharge ED (Routine); Ordered 03/11/22 Ordered By: Ramos Velarde Referrals: Jone Jane MD [Primary Care Provider] - Discharge Diet: Regular Discharge Activity: Increase activity as tolerated Patient Instructions: Muscle Strain (ED), Shoulder Pain (ED) Activity Restrictions/Additional Instructions: Follow-up with medical provider as directed in the next 5 to 7 days reevaluation. Apply cold pack on sore areas to help with symptoms. Rest and limit activity over the next 2 to 3 days to allow for healing. take medications as prescribed. Return to the ER or your medical provider if condition worsens. Please read and understand discharge instructions. Thank you for choosing [facility] for your healthcare needs today. Please realize this is an emergency room and that we are providing you with a medical screening exam and this may not be complete and all inclusive of all the testing and or work up that you may need to determine your ailment or severity of your illness. It is very important that you follow up as instructed or that you return to the Emergency Department should you have concerns or if your condition changes or worsens in any way. Coding Level of Care Code ED Sound Equipment Mechanic for Dae Fwd Exam Comprehensive
[2022-03-11] MEDS: HYDROcodone-acetaminophen 5-325 mg Tablet 1 TAB PO (10:55)
[2022-03-11 11:02] VITALS: BP 143/90; PULSE 72; RESP 17; TEMP 37.1; O2SAT 98
== END 2022-03-11 11:03 | disposition home or self-care (01) ==
PROVIDERS: Emergency Provider Physician Assistant; PCP Family Medicine
DX: S46.911A Strain of unspecified muscle, fascia and tendon at shoulder and upper arm level, right arm, initial encounter (principal); S20.211A Contusion of right front wall of thorax, initial encounter; W18.39XA Other fall on same level, initial encounter
CPT/HCPCS: 71101; 73030; 99283

== ENCOUNTER → 2022-07-24 11:37 | Outpatient (BNVA) | payer MEDICAID, SELFPAY | PROVIDERS: PCP Family Medicine; Visit Provider Nurse Practitioner | DX: J02.9 Acute pharyngitis, unspecified (principal) | CPT/HCPCS: 84443 ==

== ENCOUNTER → 2024-04-06 11:58 | Outpatient (BNVA) | payer OTHER, SELFPAY | PROVIDERS: PCP Family Medicine; Visit Provider Nurse Practitioner Family | DX: Z13.6 Encounter for screening for cardiovascular disorders (principal); Z79.899 Other long term (current) drug therapy; I10 Essential (primary) hypertension; J34.89 Other specified disorders of nose and nasal sinuses | CPT/HCPCS: 80053; 80061; 81003; 83036; 84439; 84443; 85025 ==

== ENCOUNTER → 2025-05-03 11:33 | Outpatient (BNVA) | payer OTHER, SELFPAY | PROVIDERS: PCP Family Medicine; Visit Provider Nurse Practitioner Family | DX: S99.921A Unspecified injury of right foot, initial encounter (principal); X58.XXXA Exposure to other specified factors, initial encounter | CPT/HCPCS: 73630 ==